=== PATIENT | female | born 1950 | race Caucasian/White ===

== ENCOUNTER 2018-06-27 01:40 | Observation (INO) ==
[2018-06-27] MEDS ORDERED: Isovue-370 500 ML INFUS..BTL IV ONE (02:25)
--- NOTE | 2018-06-27 02:30 | Emergency Department Note ---
Disposition Clinical Impression: Weakness Chest pain Qualifiers: Chest pain type: unspecified Qualified Code(s): R07.9 - Chest pain, unspecified Disposition: Admitted As Inpatient Condition: Fair Referrals: Amish Olmedo MD [Primary Care Provider] - Time of Disposition: 05:08 Chest Pain HPI - General Chief Complaint: ED Chest Pain Stated Complaint: Chest Pain Time Seen by Provider: 06/27/18 01:52 Vital Signs Reviewed: Yes Nursing Notes Reviewed: Yes - History of Present Illness HPI Narrative: Patient is a 67-year-old female who presents to [facility] ED with a chief complaint of chest pain. States her symptoms started a couple days ago but then acutely worsened yesterday when she was exerting herself. Admits to some nausea, no vomiting. No fever or chills. States she has also felt a pulsating sensation in her back. States the chest pain radiates into the back and is sharp stabbing in nature in the back but a dull pressure in the front. Also admits to mild shortness of breath with this. Denies any abdominal pain, problems with urination or bowel movements. States she has seen her primary care physician for this who had ordered an outpatient abdominal aortic ultrasound and Holter monitor and echocardiogram. However she became more concerned when it worsened with exertion so she came in to get it checked out. Patient states she also is having some numbness in her left upper extremity. Also states her father of a ruptured aorta. Pt complaint: chest pain Onset (ago): day(s) (2) Duration: intermittent Onset: during exertion Pain Location: substernal Severity: moderate Severity scale (1-10): 6 Quality: heaviness Pain Radiation: back Improves with: nothing Worsens with: exertion Associated symptoms: Reports: nausea, dyspnea. Denies: vomiting, diaphoresis, fever, cough Treatments prior to arrival chest pain: none - Related Data Home Medications Medication Instructions Recorded Confirmed Azithromycin [Zithromax] 250 mg PO DAILY 07/21/16 07/22/16 Insulin Glargine,Hum.rec.anlog 60 units SQ HS 07/21/16 07/22/16 [[place] Solostar] Lisinopril [Zestril] 5 mg PO DAILY 07/21/16 07/22/16 glipiZIDE [Glucotrol] 10 mg PO DAILY 07/21/16 07/22/16 metFORMIN [Glucophage] 500 mg PO BID 07/21/16 07/22/16 Albuterol Sulfate [Proair Hfa] 2 puff IH Q4H PRN 07/22/16 07/22/16 Atorvastatin [Lipitor] 40 mg PO HS 07/22/16 07/22/16 Fluticasone/Salmeterol [Advair 1 puff IH BID 07/22/16 07/22/16 500-50 Diskus] Previous Rx's Medication Instructions Recorded Azithromycin [Zithromax Tri-Carlos] 500 mg PO DAILY 3 Days tablet 07/22/16 Allergies Allergy/AdvReac Type Severity Reaction Status Date / Time acetaminophen [From [place]] Allergy Difficulty Verified 06/27/18 01:43 Breathing cefuroxime [From Ceftin] Allergy See Verified 06/27/18 01:43 Comments codeine Allergy Rash Verified 06/27/18 01:43 hydrocodone [From [place]] Allergy Difficulty Verified 06/27/18 01:43 Breathing Imipramine [From Tofranil] Allergy See Verified 06/27/18 01:43 Comments Penicillins Allergy See Verified 06/27/18 01:43 Comments sulfamethoxazole Allergy See Verified 06/27/18 01:43 [From Bactrim] Comments trimethoprim [From Bactrim] Allergy See Verified 06/27/18 01:43 Comments All systems ED: reviewed and negative except as stated. Chest Pain PMH - Past Medical History Medical history: Reports: diabetes, hypertension Psychiatric history: Reports: no psych history - Social History Smoking Status: Never smoker Alcohol use: Reports: rarely Drug use: Reports: none Physical Exam - General Limitations: no limitations General appearance: alert, in no apparent distress - Head Head exam: atraumatic, normocephalic, normal inspection - Eye Eye exam: Present: EOMI - ENT ENT exam: normal exam, normal oropharynx, mucous membranes moist - Neck Neck exam: Present: normal inspection, full ROM, trachea midline - Chest Chest inspection: Present: normal inspection, symmetric chest wall rise - Respiratory Respiratory exam: Present: normal lung sounds bilaterally - Cardiovascular Cardiovascular exam: Present: regular rate, normal rhythm, normal heart sounds - Abdominal Exam Abdominal exam: Present: soft, Non-Tender. Absent: tenderness, distention, guarding, rebound, rigidity - Extremities Exam Extremities exam: Present: normal inspection, full ROM. Absent: tenderness, pedal edema - Neurological Exam Neurological exam: Present: alert, oriented X3 - Psychiatric Psychiatric exam: Present: normal affect, normal mood - Skin Skin exam: Present: warm, dry, intact, normal color Course Course Narrative: Patient seen and examined. Chest pain and dyspnea worse with exertion. Also a pulsating sensation in the back as well as some left upper extremity numbness in the hand. Due to her family history of aortic rupture as well as concern about the chest pain radiating into her back, we will go ahead and order a CTA of the chest abdomen and pelvis to rule out aortic dissection/aneurysm. Cardiopulmonary workup ordered as well. - Reevaluation(s) Reevaluation #1: Patient's lab work unremarkable. CTA imaging also unremarkable. No signs of acute aortic abnormalities. I went back to discuss the results with the patient. She states her chest pain has improved significantly. However she is unable to tell me if she thinks this was related to the nitroglycerin or not. Full dose aspirin ordered. We will admit for chest pain, ACS workup. I discussed with the hospitalists Dr. Tate who has accepted the patient for admission. Time: 05:10 Vital Signs Temperature 97.5 F L 06/27/18 01:45 Pulse Rate 58 06/27/18 01:45 Respiratory Rate 16 06/27/18 01:45 Blood Pressure 161/77 06/27/18 01:45 O2 Sat by Pulse Oximetry 99 06/27/18 01:45 Temperature 97.5 F L 06/27/18 01:46 Pulse Rate 65 06/27/18 05:00 Respiratory Rate 16 06/27/18 03:37 Blood Pressure 113/71 06/27/18 05:00 O2 Sat by Pulse Oximetry 98 06/27/18 05:00 Oxygen Delivery Oxygen Delivery Room Air Chest Pain - Medical Records Medical records reviewed: Yes I reviewed the patient's medical records. - Lab Data Lab results reviewed: Yes I reviewed the patient's lab results. Result diagrams: 06/27/18 02:25 06/27/18 02:25 Lab Results 06/27/18 06/27/18 Range/Units 02:25 02:25 WBC 3.8 L (4.3-11.1) K/mcL RBC 4.12 (3.82-4.97) M/mcL Hgb 12.7 (11.5-15.4) g/dL Hct 37.7 (35.3-44.9) % MCV 91.5 (83.0-100.0) fL MCH 30.8 (28.0-33.3) pg MCHC 33.7 (31.6-35.5) g/dL RDW 13.4 (11.5-14.5) % Plt Count 175 (140-400) K/mcL MPV 10.1 (9.4-12.4) fL Immature Gran % 0.3 (0-4) % Seg Neutrophils % 40.9 % Lymphocytes % 40.8 % Monocytes % 8.0 % Eosinophils % 9.5 % Basophils % 0.5 % Neutrophils # 1.5 L (1.6-8.9) K/mcL Lymphocytes # 1.5 (0.6-4.6) K/mcL Monocytes # 0.3 (0.0-1.3) K/mcL Eosinophils # 0.4 (0.0-0.6) K/mcL Basophils # 0.0 (0.0-0.2) K/mcL Sodium 142 (136-145) mEq/L Potassium 3.8 (3.5-5.1) mEq/L Chloride 107 (98-107) mEq/L Carbon Dioxide 27 (23-29) mEq/L BUN 13 (8-23) mg/dL Creatinine 0.70 (0.60-1.20) mg/dL Est GFR ( Amer) > 60 (> 60) Est GFR (Non-Af Amer) > 60 (> 60) BUN/Creatinine Ratio 19 (6-26) Glucose 121 H (70-105) mg/dL Calculated Osmolality 295 (280-300) Calcium 9.6 (8.6-10.3) mg/dL Troponin I < 0.03 (< 0.04) ng/mL - Radiology Data Radiology results reviewed: Yes I reviewed the patient's radiology results. Chest CTA 06/27/18 02:26 IMPRESSION: No evidence of an acute aortic syndrome. Negative for acute pulmonary embolism to the lobar level. No acute nonvascular findings in the chest, abdomen or pelvis. Hepatic steatosis. Colonic diverticulosis. Large volume colonic stool-query constipation D/ / Ghulam Blount / Ghulam Blount Interpreting Provider: Ghulam Blount Abdomen/Pelvis CTA 06/27/18 02:27 IMPRESSION: No evidence of an acute aortic syndrome. Negative for acute pulmonary embolism to the lobar level. No acute nonvascular findings in the chest, abdomen or pelvis. Hepatic steatosis. Colonic diverticulosis. Large volume colonic stool-query constipation D/ / Ghulam Blount / Ghulam Blount Interpreting Provider: Ghulam Blount - EKG Data EKG attestation: Yes I reviewed and interpreted this EKG. EKG results narrative: EKG done at 156 shows normal sinus rhythm with a rate of [address] elevation or depression. Normal axis. Inverted T waves noted in lead 3. Unchanged from prior EKG done 07/21/2016. Heart Score - Score History: Moderately Suspicious EKG: Non Specific repolarisation Disturbance Age: 45-65 Risk Factors: 1-2 risk factors Troponin: Less than normal limit HEART Score Total: 4 Attestation Statement - Attestation Attestation: I, Seymour Rose DO, examined this patient [id number] and my medical decision-making was reviewed with Rosa Ashford DO , Resident Physician. I agree with the documented findings, disposition and treatment plan as described except to the extent set forth below. Please see my progress notes for details.
[2018-06-27 02:41] LABS: Basophils % 0.5 %; Eosinophils # 0.4 K/mcL (0.0-0.6); Eosinophils % 9.5 %; Hematocrit 37.7 % (35.3-44.9); Hemoglobin 12.7 g/dL (11.5-15.4); Immature Granulocytes % 0.3 % (0-4); Lymphocytes # 1.5 K/mcL (0.6-4.6); Lymphocytes % 40.8 %; Mean Corpuscular HGB Conc 33.7 g/dL (31.6-35.5); Mean Corpuscular Hemoglobin 30.8 pg (28.0-33.3); Mean Corpuscular Volume 91.5 fL (83.0-100.0); Mean Platelet Volume 10.1 fL (9.4-12.4); Monocytes # 0.3 K/mcL (0.0-1.3); Neutrophils # 1.5 K/mcL (1.6-8.9); Platelet Count 175 K/mcL (140-400); Red Blood Count 4.12 M/mcL (3.82-4.97); Red Cell Distribution Width 13.4 % (11.5-14.5); Segmented Neutrophils % 40.9 %
[2018-06-27 03:01] LABS: BUN/Creatinine Ratio 19 (6-26); Blood Urea Nitrogen 13 mg/dL (8-23); Calcium 9.6 mg/dL (8.6-10.3); Carbon Dioxide 27 mEq/L (23-29); Chloride 107 mEq/L (98-107); Glucose 121 mg/dL (70-105); Osmolality,Calculated 295 (280-300); Potassium 3.8 mEq/L (3.5-5.1); Sodium 142 mEq/L (136-145); eGFR For Non-African Americans > 60 (> 60)
[2018-06-27 03:03] LABS: Troponin I < 0.03 ng/mL (< 0.04)
[2018-06-27] MEDS: Nitroglycerin 0.4 MG TAB.SUBL SL PRN ×2 (03:36→05:08)
[2018-06-27] MEDS ORDERED: Aspirin 81 MG TAB.CHEW PO STA (04:45)
--- NOTE | 2018-06-27 04:45 | Emergency Department Note ---
Disposition Clinical Impression: Weakness Chest pain Qualifiers: Chest pain type: unspecified Qualified Code(s): R07.9 - Chest pain, unspecified Disposition: Admitted As Inpatient Condition: Fair Referrals: Amish Olmedo MD [Primary Care Provider] - Time of Disposition: 05:59 General Adult HPI - General Chief complaint: ED Chest Pain Stated complaint: Chest Pain Time Seen by Provider: 06/27/18 01:52 Source: patient Limitations: no limitations - History of Present Illness Pain Scale: 6 - Related Data Home Medications Medication Instructions Recorded Confirmed Azithromycin [Zithromax] 250 mg PO DAILY 07/21/16 07/22/16 Insulin Glargine,Hum.rec.anlog 60 units SQ HS 07/21/16 07/22/16 [[place] Solostar] Lisinopril [Zestril] 5 mg PO DAILY 07/21/16 07/22/16 glipiZIDE [Glucotrol] 10 mg PO DAILY 07/21/16 07/22/16 metFORMIN [Glucophage] 500 mg PO BID 07/21/16 07/22/16 Albuterol Sulfate [Proair Hfa] 2 puff IH Q4H PRN 07/22/16 07/22/16 Atorvastatin [Lipitor] 40 mg PO HS 07/22/16 07/22/16 Fluticasone/Salmeterol [Advair 1 puff IH BID 07/22/16 07/22/16 500-50 Diskus] Previous Rx's Medication Instructions Recorded Azithromycin [Zithromax Tri-Carlos] 500 mg PO DAILY 3 Days tablet 07/22/16 Allergies Allergy/AdvReac Type Severity Reaction Status Date / Time acetaminophen [From [place]] Allergy Difficulty Verified 06/27/18 01:43 Breathing cefuroxime [From Ceftin] Allergy See Verified 06/27/18 01:43 Comments codeine Allergy Rash Verified 06/27/18 01:43 hydrocodone [From [place]] Allergy Difficulty Verified 06/27/18 01:43 Breathing Imipramine [From Tofranil] Allergy See Verified 06/27/18 01:43 Comments Penicillins Allergy See Verified 06/27/18 01:43 Comments sulfamethoxazole Allergy See Verified 06/27/18 01:43 [From Bactrim] Comments trimethoprim [From Bactrim] Allergy See Verified 06/27/18 01:43 Comments Past Medical History - Past Medical History Medical history: Reports: diabetes, hypertension Psychiatric history: Reports: no psych history - Social History Smoking Status: Never smoker Smokeless Tobacco Status: No Alcohol use: Reports: rarely Drug use: Reports: none Physical Exam - General Limitations: no limitations General appearance: alert, in no apparent distress Course Vital Signs Temperature 97.5 F L 06/27/18 01:45 Pulse Rate 58 06/27/18 01:45 Respiratory Rate 16 06/27/18 01:45 Blood Pressure 161/77 06/27/18 01:45 O2 Sat by Pulse Oximetry 99 06/27/18 01:45 Temperature 97.5 F L 06/27/18 01:46 Pulse Rate 65 06/27/18 05:00 Respiratory Rate 16 06/27/18 03:37 Blood Pressure 113/71 06/27/18 05:00 O2 Sat by Pulse Oximetry 98 06/27/18 05:00 Oxygen Delivery Oxygen Delivery Room Air Medical Decision Making - Lab Data Result diagrams: 06/27/18 02:25 06/27/18 02:25 Lab Results 06/27/18 06/27/18 Range/Units 02:25 02:25 WBC 3.8 L (4.3-11.1) K/mcL RBC 4.12 (3.82-4.97) M/mcL Hgb 12.7 (11.5-15.4) g/dL Hct 37.7 (35.3-44.9) % MCV 91.5 (83.0-100.0) fL MCH 30.8 (28.0-33.3) pg MCHC 33.7 (31.6-35.5) g/dL RDW 13.4 (11.5-14.5) % Plt Count 175 (140-400) K/mcL MPV 10.1 (9.4-12.4) fL Immature Gran % 0.3 (0-4) % Seg Neutrophils % 40.9 % Lymphocytes % 40.8 % Monocytes % 8.0 % Eosinophils % 9.5 % Basophils % 0.5 % Neutrophils # 1.5 L (1.6-8.9) K/mcL Lymphocytes # 1.5 (0.6-4.6) K/mcL Monocytes # 0.3 (0.0-1.3) K/mcL Eosinophils # 0.4 (0.0-0.6) K/mcL Basophils # 0.0 (0.0-0.2) K/mcL Sodium 142 (136-145) mEq/L Potassium 3.8 (3.5-5.1) mEq/L Chloride 107 (98-107) mEq/L Carbon Dioxide 27 (23-29) mEq/L BUN 13 (8-23) mg/dL Creatinine 0.70 (0.60-1.20) mg/dL Est GFR ( Amer) > 60 (> 60) Est GFR (Non-Af Amer) > 60 (> 60) BUN/Creatinine Ratio 19 (6-26) Glucose 121 H (70-105) mg/dL Calculated Osmolality 295 (280-300) Calcium 9.6 (8.6-10.3) mg/dL Troponin I < 0.03 (< 0.04) ng/mL Attestation Statement - Attestation Attestation: I, Seymour Rose DO, examined this patient [id number] and my medical decision-making was reviewed with Rosa Ashford DO , Resident Physician. I agree with the documented findings, disposition and treatment plan as described except to the extent set forth below. Please see my progress notes for details. 67-year-old female presents emergency room with approximately 12 hours worth of midsternal chest discomfort that radiates into her back. She is a long- standing history of acid reflux that is presented similar to this in the past was never radiated into her back. Over the last several weeks to months patient has been seen by her primary care provider as scheduled to have outpatient ultrasound of the chest and abdomen to look for aortic aneurysm because of family history of aortic aneurysm and bleed. The patient came in tonight because of the symptoms being different than previous and she was concerned and decided to have it evaluated here today. She is denying any active chest pain at this time she has a fluctuation of the symptoms. She does describe as being similar in nature to acid reflux related issues but she is denying shortness of breath headache vision changes nausea vomiting or diarrhea. No fevers no chills. Denies any trauma or injury. She has not had any new medications or medication changes at this time. Patient was screening evaluation completed CBC chemistry EKG and troponin. Because the patient's chest discomfort and pain is well as possible pulse deficit between the upper extremities on physical exam CT angiography the chest and abdomen was ordered immediately after physical exam was completed. Previous chemistry panels as well as renal function testing was reviewed from prior evaluations in March. Patient's GFR was appropriate and her creatinine was normal. Fluids will be given here in the emergency room. Discussion will be had for possible admission versus disposition after the full workup and treatment course have been established and completed. Patient is comfortable with the plan this time. Aspirin will be given. Continuation of the chest symptomatic control as well as treatment course will be completed by traditional has been ordered. Patient otherwise clinical stable at this time with mild elevated blood pressure and symptoms are concerning for possible dissection versus aneurysm. See detailed documentation the physical exam, medical intervention, medical decision-making and disposition in the resident physician's note. 0400 CT angiography the chest and abdomen are unremarkable for aneurysm or dissection. Patient's labs appear to be stable at this point. EKG does not show any acute pathology except for T-wave inversion is chronic in lead 3. Lengthy discussion was had with the patient the bedside about admission versus treatment course at home. The family as well as the patient had decided to be admitted at this time for chest pain evaluation rule out. Symptoms have resolved with nitroglycerin here. Aspirin will be given at this time considering there is no acute signs of bleed or dissection. Admission process to be established at this point. Hospitals will be contacted and patient is otherwise stable. 0500 Symptoms were discussed and reviewed with the on-call hospitalist. No other recommendations or concerns noted. Patient will be admitted for symptomatic evaluation of chest tightness and pain. She has no other acute etiology at this time. Pain was resolving prior to you in the nitroglycerin being given an
[2018-06-27] MEDS ORDERED: Naloxone 0.4 MG/ML INJ IVP PRN ×2 (05:46)
[2018-06-27] MEDS ORDERED: Ondansetron 4 MG/2 ML VIAL IVP PRN (05:46)
[2018-06-27] MEDS ORDERED: *HR* Dextrose 50 % in Water (Syg) 50 ML SYRINGE IVP PRN (05:48)
[2018-06-27] MEDS ORDERED: D5% in Water 1,000 ML IVC PRN (05:48)
[2018-06-27] MEDS ORDERED: Dextrose Gel 15 GM/37.5 ML TUBE PO PRN ×2 (05:48)
--- NOTE | 2018-06-27 05:55 | Internal Med History&Physical ---
Date of Encounter: 06/27/18 Time of Encounter: 05:50 Internal Medicine - H&P: HPI Chief complaint: chest pain Admitted From: Emergency Dept Plans for Post Hospital Care: Home History of present illness: Ms. Acuña is a 67 year old female with past medical history of diabetes who presents emergency department with chief complaint of chest pain since last evening. She states the pain began around 10 PM she was a passenger in a car. The patient has been constant since however she states that has been slowly decreasing since she arrived at the hospital. She is unsure whether not the nitroglycerin she was given helped or not. She states he gets this pain approximately 4-5 times per month and it resolves on its own. This episode was different in which she experienced some nausea with it as well as a sharp pain in her back that resolved shortly after onset. She states she gets occasional shortness of breath which is often unrelated to this chest tightness. She denies any exertional component to this chest pain and is there are no exacerbating or relieving factors including rest, positional changes, pleurisy. She denies any symptoms of fever, chills, cough outside of her normal, abdominal pain. She does state she has a problem with looser and more frequent stools she has been dealing with this for some time. She is a diabetic and states she has been compliant with medication and blood sugar checks and normally runs anywhere from 110-150. She has occasional moments that her primary care physician has been working her up for and which she feels weak in her proximal legs and occasional numbness and tingling in her distal fingers. She did undergo a brain MRI was grossly unremarkable on 06/25/18. She was also scheduled to have blood work drawn, abdominal ultrasound, CT scans which have yet to be done. In the emergency department, vital signs are significant for mildly elevated BP at 161/77. Laboratory results were significant for a WBC of 3.8 which that her baseline and troponin was negative. CTA of the chest and abdomen was obtained for concerns of aortic aneurysm as she has a family history her father of such who at the age of 72. These results show hepatic steatosis, colonic diverticulosis and large volume of colonic stool. Past medical history includes diabetes, GERD, hyperlipidemia Past surgical history includes appendectomy, hysterectomy, carpal tunnel Social history: Patient denies alcohol, tobacco, drug use Family history: Significant for coronary artery disease in mother and father in 60s as well as ruptured abdominal aortic aneurysm in father at age of 72. Past Med Surg Social Fam HX - Past Medical History Medical history: diabetes, hypertension Psychiatric history: no psych history - Social History Smoking Status: Never smoker Smokeless Tobacco Status: No Alcohol use: rarely Drug use: none - Family History Mother Hx Family Cardiac Disorders: Yes (tripple bypass, and stents) Internal Medicine - H&P: Meds Azithromycin [Zithromax] 250 mg PO DAILY 07/21/16 [History] Insulin Glargine,Hum.rec.anlog [[place]o Solostar] 60 units SQ HS 07/21/16 [ History] Lisinopril [Zestril] 5 mg PO DAILY 07/21/16 [History] glipiZIDE [Glucotrol] 10 mg PO DAILY 07/21/16 [History] metFORMIN [Glucophage] 500 mg PO BID 07/21/16 [History] Albuterol Sulfate [Proair Hfa] 2 puff IH Q4H PRN 07/22/16 [History] Atorvastatin [Lipitor] 40 mg PO HS 07/22/16 [History] Azithromycin [Zithromax Tri-Carlos] 500 mg PO DAILY 3 Days tablet 07/22/16 [Rx] Fluticasone/Salmeterol [Advair 500-50 Diskus] 1 puff IH BID 07/22/16 [History] 3 Allergy/AdvReac Type Severity Reaction Status Date / Time acetaminophen [From [place]] Allergy Difficulty Verified 06/27/18 01:43 Breathing cefuroxime [From Ceftin] Allergy See Verified 06/27/18 01:43 Comments codeine Allergy Rash Verified 06/27/18 01:43 hydrocodone [From [place]] Allergy Difficulty Verified 06/27/18 01:43 Breathing Imipramine [From Tofranil] Allergy See Verified 06/27/18 01:43 Comments Penicillins Allergy See Verified 06/27/18 01:43 Comments sulfamethoxazole Allergy See Verified 06/27/18 01:43 [From Bactrim] Comments trimethoprim [From Bactrim] Allergy See Verified 06/27/18 01:43 Comments All Systems PM: A 10-system review of systems was performed and is negative for pertinent findings except as documented above in the HPI. - Constitutional Constitutional: no chills, no fever(s), no malaise, no weakness - Cardiovascular Cardiovascular ROS IM: chest pain, dyspnea, no diaphoresis, no dyspnea on exertion, no edema, no lightheadedness, no orthopnea, no palpitations, no syncope - Respiratory Respiratory: cough, dyspnea, no dyspnea on exertion, no wheezing, no pain on inspiration, no pain with cough - Gastrointestinal Gastrointestinal: loose stools, nausea, no abdominal pain, no cramping, no vomiting - Musculoskeletal Musculoskeletal ROS IM: tingling, no myalgias, no numbness - Integumentary Integumentary IM: no rash - Neurological Neurological ROS: tingling, no dizziness, no headache(s), no numbness - Constitutional Vitals: Temp Pulse Resp BP Pulse Ox 97.5 F L 65 16 113/71 98 06/27/18 01:46 06/27/18 05:00 06/27/18 03:37 06/27/18 05:00 06/27/18 05:00 Exam: Gen.: Vitals noted. No acute distress. AAOx3, resting comfortably in bed HEENT: PERRL, oropharynx clear, Normocephalic, atraumatic, moist mucous membranes Cardiac: RRR, no murmur, +S1/S2 Pulmonary: CTA bilaterally, no wheezes, rales or rhonchi, equal chest expansion. Chest pain somewhat reproducible but she states it normally happens in a more focused area Abdomen: soft, nontender, BS noted, no guarding Extremities: no BLE edema, nontender calf, no cyanosis or clubbing Neuro: A&Ox3, moves all extremities, no focal deficits Psych: Appropriate mood and behavior Internal Med - H&P Results - Labs CBC & Chem 7: 06/27/18 02:25 06/27/18 02:25 - Assessment and plan (1) Chest pain Current Visit: Yes Status: Acute Assessment and plan: - Atypical chest pain with onset 8 hours ago and still present. Dull and substernal but not exertional and not relieved with nitroglycerin - EKG unchanged from previous, initial troponin negative - CTA performed to rule out dissection and grossly unremarkable - Chest pain resolving on its own per patient - Most recent cardiac workup in March 2016 with unremarkable echocardiogram and dobutamine stress echo, EF 60-65% - Reports left heart catheterization many years ago and was normal - Suspected etiology may be more likely related to anxiety versus GERD. She was recently started on omeprazole from her PCP - She does have multiple stressors recently in her life with this numbness and tingling that is being currently worked up as well as Holter, ultrasounds, echo - Heart score documented as 4 emergency department. KATHYA score 2 (age, risk factors) Plan - Continue to trend troponins - Echocardiogram this morning - Consider cardiology consultation if pain returns - Sublingual nitroglycerin when necessary - Continue aspirin, consider BB - Might consider increasing PPI, anxiolytic if cardiac workup negative Qualifiers: Chest pain type: unspecified Qualified Code(s): R07.9 - Chest pain, unspecified (2) HTN (hypertension) Current Visit: Yes Status: Chronic Assessment and plan: - Slightly elevated on presentation however this may be due to pain/anxiety Most recently well-controlled at 113/71 Continue to monitor, patient is not on home antihypertensive Qualifiers: Hypertension type: essential hypertension Qualified Code(s): I10 - Essential (primary) hypertension (3) HLD (hyperlipidemia) Current Visit: Yes Status: Chronic Assessment and plan: Continue home statin Qualifiers: Hyperlipidemia type: unspecified Qualified Code(s): E78.5 - Hyperlipidemia , unspecified (4) Weakness Current Visit: Yes Status: Acute Assessment and plan: - This is likely multifactorial - Etiologies include normal aging, B12 deficiency noticed on laboratory exams recently, deconditioning - Unlikely related to chest pain as above - May consider PT/OT however patient does state this weakness and tingling is intermittent - Continue monitor and workup as outpatient (5) GERD (gastroesophageal reflux disease) Current Visit: Yes Status: Chronic Assessment and plan: - Patient states she does have a history of GERD but does not take PPI until approximately one month ago - States she has had chest pain that has been associated with this reflux - Denies positional or symptoms that are associated with eating or time - Continue PPI, consider GI cocktail if pain persists and patient is no longer nothing by mouth Qualifiers: Esophagitis presence: esophagitis presence not specified Qualified Code(s) : K21.9 - Gastro-esophageal reflux disease without esophagitis (6) DVT prophylaxis Current Visit: Yes Status: Acute Assessment and plan: Heparin 5000 units every 12 hours - Time Spent With Patient Total time spent is greater than 50% in coordination of care (as documented) at patient's floor/unit and/or counseling patient:
[2018-06-27] MEDS: Budesonide/Formoterol 160/4.5 MDI IH SCH ×2 (07:53→20:23)
[2018-06-27] MEDS: Insulin LISPRO 300 UNITS/3 ML VIAL SQ SCH ×2 (12:05→16:55)
[2018-06-27] MEDS: *HR* Heparin 5,000 UNIT/ML VIAL SQ SCH (16:59)
--- NOTE | 2018-06-27 17:23 | Electrocardiograph Report ---
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
--- NOTE | 2018-06-27 19:23 | Internal Med Progress Note ---
Hospitalist Progress Note - Encounter Date of Encounter: 06/27/18 Time of Encounter: 11:00 - Subjective Interval History: Patient asymptomatic this morning and cardiac biomarkers have been negative. Nuclear medicine stress test pending for 06/28/18 - Exam Vitals: Temp Pulse Resp BP Pulse Ox 98.0 F 63 19 130/78 94 06/27/18 16:38 06/27/18 16:38 06/27/18 16:38 06/27/18 16:38 06/27/18 16:38 Exam: Gen.: Nonacute distress, alert and oriented 3 ENT: Mucosal membranes moist Respiratory: Lungs are clear to auscultation bilaterally without any wheezing rhonchi or rales Cardiovascular: Normal S1 and S2 regular rate rhythm no murmurs rubs or gallops Abdomen: Soft, nontender and nondistended with positive bowel sounds Extremities: No lower extremity edema Skin: Normal color - Assessment and Plan (1) Chest pain Current Visit: Yes Status: Acute Assessment and Plan: Patient asymptomatic and cardiac biomarkers have been negative Nuclear medicine stress test pending for 06/28/18 (2) HTN (hypertension) Current Visit: Yes Status: Chronic Assessment and Plan: Continue home medications (3) HLD (hyperlipidemia) Current Visit: Yes Status: Chronic Assessment and Plan: Continue home statin (4) GERD (gastroesophageal reflux disease) Current Visit: Yes Status: Chronic Assessment and Plan: Patient states she does have a history of GERD but does not take PPI until approximately one month ago States she has had chest pain that has been associated with this reflux Continue PPI and will consider GI cocktail if pain persists (5) DVT prophylaxis Current Visit: Yes Status: Acute Assessment and Plan: Heparin 5000 units every 12 hours - Time Spent with Patient Total time spent is greater than 50% in coordination of care (as documented) at patient's floor/unit and/or counseling patient: Internal Medicine: Result - Labs CBC & Chem 7: 06/27/18 02:25 06/27/18 02:25 Labs: Cardiac Enzymes 06/27/18 06/27/18 Range/Units 09:02 13:41 Troponin I < 0.03 < 0.03 (< 0.04) ng/mL - Impressions Impressions Echocardiogram 06/27/18 05:48 Impressions: LVEF 60%. Mild left ventricular diastolic dysfunction. Normal right ventricular structure and function. Mild mitral regurgitation. Mild-moderate tricuspid regurgitation. Mild pulmonary hypertension. Left Ventricular Wall Motion: Rest Echo Findings All wall segments showed normal motion. Findings: Study Quality * Technically adequate exam. ECG Findings * Normal sinus rhythm. Left Ventricle * LVEF 60%. * Normal LV chamber size, wall thickness and function. * Mild left ventricular diastolic dysfunction. Right Ventricle * Normal right ventricular structure and function. Left Atrium * Mildly dilated left atrium. Right Atrium * Normal right atrial size. Mitral Valve * Normal mitral valve structure. * No mitral stenosis. * Mild mitral regurgitation. Aortic Valve * Trileaflet aortic valve. * No aortic stenosis. * Trace aortic regurgitation. Tricuspid Valve * Normal tricuspid valve structure. * Mild-moderate tricuspid regurgitation. * Estimated RA pressure is 8 mmHg. * Estimated RVSP is 39 mmHg. * Mild pulmonary hypertension. Pulmonic Valve * Pulmonic valve is not well visualized. * No pulmonic stenosis. * No pulmonic regurgitation. Pulmonary Artery * Pulmonary artery not well visualized. Aorta * Normally sized aortic root. Pericardium * There is no pericardial effusion present. Interatrial Septum * No evidence of PFO by color Doppler. IVC * The IVC is not dilated. * < 50% respiratory change. Consult Discharge Plan - Plan Referrals: Amish Olmedo MD [Primary Care Provider] - (1) Chest pain Qualifiers: Chest pain type: unspecified Qualified Code(s): R07.9 - Chest pain, unspecified (2) HTN (hypertension) Qualifiers: Hypertension type: essential hypertension Qualified Code(s): I10 - Essential (primary) hypertension (3) HLD (hyperlipidemia) Qualifiers: Hyperlipidemia type: unspecified Qualified Code(s): E78.5 - Hyperlipidemia, unspecified (4) GERD (gastroesophageal reflux disease) Qualifiers: Esophagitis presence: esophagitis presence not specified Qualified Code(s): K21.9 - Gastro-esophageal reflux disease without esophagitis
[2018-06-28] MEDS: Insulin LISPRO 300 UNITS/3 ML VIAL SQ SCH ×3 (00:10→09:17)
[2018-06-28] MEDS ORDERED: Pantoprazole 40 MG VIAL IVP SCH (06:00)
[2018-06-28] MEDS: *HR* Heparin 5,000 UNIT/ML VIAL SQ SCH (06:01)
[2018-06-28] MEDS ORDERED: Regadenoson 0.4 MG/5 ML SYRINGE IVP ONE (06:06)
[2018-06-28 07:17] LABS: Chol/HDL Ratio 3.7 (0-4.9)
[2018-06-28] MEDS: Budesonide/Formoterol 160/4.5 MDI IH SCH (07:41)
[2018-06-28 08:24] LABS: Estimated Average Glucose 140 mg/dl; Hemoglobin A1C 6.5 %
[2018-06-28] MEDS ORDERED: Aspirin 81 MG TAB.CHEW PO SCH (09:00)
[2018-06-28 11:42] VITALS: BP 123/76
--- NOTE | 2018-06-28 14:05 | Discharge Summary ---
- NOTES TO OUTPATIENT PROVIDER Notes to Outpatient Provider: none Orders not resulted at time of discharge: Pending orders 06/28/18 07:30 NM ivan perf SPECT multi [NM] Routine Date of Encounter: 06/28/18 Time of Encounter: 11:00 - Discharge Diagnosis (1) Chest pain Priority: Primary Status: Acute Qualifiers: Chest pain type: unspecified Qualified Code(s): R07.9 - Chest pain, unspecified (2) HTN (hypertension) Priority: Secondary Status: Chronic Qualifiers: Hypertension type: essential hypertension Qualified Code(s): I10 - Essential (primary) hypertension (3) HLD (hyperlipidemia) Priority: Secondary Status: Chronic Qualifiers: Hyperlipidemia type: unspecified Qualified Code(s): E78.5 - Hyperlipidemia , unspecified (4) GERD (gastroesophageal reflux disease) Priority: Secondary Status: Chronic Qualifiers: Esophagitis presence: esophagitis presence not specified Qualified Code(s) : K21.9 - Gastro-esophageal reflux disease without esophagitis Hospital course: Patient is a 67-year-old female with past medical history significant for hyperlipidemia, diabetes and GERD who presents to the ER on 06/27/18 due to chest pain. Patient reported of having sudden onset of chest pain which she describes a sharp with radiated towards her back. Patient was concerned so decided come to the ER for evaluation. During patients hospital stay her cardiac biomarkers are negative and nuclear medicine stress tests negative for ischemic changes or infarct. She will be discharged to follow-up with primary care provider. - Time Spent with Patient Total time spent providing and/or coordinating discharge services: Less than 30 minutes - Discharge Medications Home Medications: Lisinopril [Zestril] 5 mg PO DAILY 07/21/16 [History] metFORMIN [Glucophage] 1,000 mg PO BID 07/21/16 [History] Atorvastatin [Lipitor] 40 mg PO HS 07/22/16 [History] Cyanocobalamin (Vitamin B-12) [Vitamin B12] 1,000 mcg PO DAILY 06/27/18 [History ] Ergocalciferol (VITAMIN D2) [Vitamin D2] 50,000 unit PO QWEEK 06/27/18 [History] GlipiZIDE [Glipizide ER] 10 mg PO DAILY 06/27/18 [History] Omeprazole [PriLOSEC] 40 mg PO DAILY 06/27/18 [History] Allergies/Adverse Reactions: 3 Allergy/AdvReac Type Severity Reaction Status Date / Time acetaminophen [From [place]] Allergy Difficulty Verified 06/27/18 01:43 Breathing cefuroxime [From Ceftin] Allergy See Verified 06/27/18 01:43 Comments codeine Allergy Rash Verified 06/27/18 01:43 hydrocodone [From [place]] Allergy Difficulty Verified 06/27/18 01:43 Breathing Imipramine [From Tofranil] Allergy See Verified 06/27/18 01:43 Comments Penicillins Allergy See Verified 06/27/18 01:43 Comments sulfamethoxazole Allergy See Verified 06/27/18 01:43 [From Bactrim] Comments trimethoprim [From Bactrim] Allergy See Verified 06/27/18 01:43 Comments Date of admission: 06/27/18 05:17 Primary care physician: Amish Olmedo MD - Constitutional Vitals: Temp Pulse Resp BP Pulse Ox 97.4 F L 63 19 123/76 97 06/28/18 11:38 06/28/18 11:38 06/28/18 11:38 06/28/18 11:38 06/28/18 11:38 General appearance: Present: no acute distress - Patient Status Disposition: Home, Self-Care Condition: Fair - Discharge Instructions Instructions: Chest Pain (DC) Follow Up With: Amish Olmedo MD [Primary Care Provider] - 07/02/18 1:30 pm
== END 2018-06-28 14:47 | disposition home or self-care (01) ==
LOC: EMEROOARM 01:40 → 3BNU 01:40 → SUATTDRO 05:17 → 3BNU 05:59
PROVIDERS: ADMIT Family Medicine; ATTEND Hospitalist